=== PATIENT | female | born 1975 | race Caucasian/White ===

== ENCOUNTER 2020-11-16 13:02 | Emergency (ER) | payer OTHER, SELFPAY ==
[2020-11-16 13:12] VITALS: BP 151/89; PULSE 93; RESP 16; TEMP 37.3; O2SAT 98
--- NOTE | 2020-11-16 13:13 | ED.URI ---
HPI - URI/Sore Throat General Chief Complaint: Upper Respiratory Infection Stated Complaint: sinus infection Time Seen by Provider: 11/16/20 13:41 Source: patient and RN notes reviewed Mode of arrival: ambulatory Limitations: no limitations History of Present Illness HPI Narrative: 45-year-old female presents with concern for nasal congestion,, headache, fever, rhinorrhea, cough. Reports symptoms started 2 days ago. Reports she has had Covid positive coworkers. She denies loss of taste and smell, shortness of breath, body aches, chills, sweats. Reports she has been taking sinus medication. MD elicited complaint: nasal congestion Related Data Allergies Allergy/AdvReac Type Severity Reaction Status Date / Time No Known Allergies Allergy Verified 10/22/18 19:10 Review of Systems Review of Systems: CONSTITUTIONAL: Denies malaise, chills, sweats. Reports fever. EYES: Denies visual changes, redness, or discharge. ENT: Reports rhinorrhea, congestion, sinus pain. Denies otalgia and sore throat. CARDIOVASCULAR: Denies chest pain, palpitations, or edema. RESPIRATORY: Reports cough. Denies dyspnea. GASTROINTESTINAL: Denies abdominal pain, nausea, vomiting, diarrhea SKIN: Denies rash or itching. MUSCULOSKELETAL: Denies myalgia. NEUROLOGIC: Denies headache. All systems reviewed & are unremarkable except as noted in HPI and below PMFSH Comments At time of signature, agree with nursing past medical, surgical, social and family history. There is no relevant family history pertinent to the presenting complaint Exam Narrative: GENERAL: Well-appearing, well-nourished, and in no acute distress. HEAD: Normocephalic EYES: PERRLA, conjunctivae clear ENT: Nares clear, turbinates pink, clear discharge. Mucous membranes moist. TM pearly ojeda with sharp light reflex bilaterally; no tragal tenderness. Oropharynx not erythematous without lesions. Tonsils not enlarged and without exudate, no drooling, no hoarseness, no trismus, uvula midline. NECK: Supple. No lymphadenopathy CHEST: Clear to auscultation, breath sounds equal. No wheezing, rhonchi, rales, or stridor. No respiratory distress, speaks in full sentences. HEART: Regular rate and rhythm. No murmur heard. SKIN: Warm, dry, no rash. NEURO: Alert and oriented x3. PSYCH: Normal mood and affect Course Course Emergency Course: Patient is aware of diagnosis, understands and agrees to treatment plan. Anticipatory guidance given. Patient agrees to follow-up as directed and is aware of reasons to seek care at the emergency department. Portions of this record may have been created with voice recognition software Vital Signs Vital signs: Reviewed. MDM - URI/Sore Throat MDM Narrative Medical decision making narrative: Differential diagnosis considered: [place] virus, strep pharyngitis, allergic rhinitis, upper respiratory tract infection, sinusitis, rhinosinusitis, nasopharyngitis. viral pharyngitis, otitis media, otitis externa, pneumonia, bronchitis, viral cough syndrome, viral syndrome, and influenza. Exam findings show no acute concerns or changes; patient is non-toxic appearing and is in no distress. Patient is appropriate for outpatient treatment and follow-up. Lab Data Attestation: I reviewed the patient's lab results. Critical Care Time Critical Care Time Critical Care Time: No Discharge Plan Discharge Clinical Impression: COVID-19 Patient Disposition: Home, Self-Care Condition: Stable Instructions: How to Recover from COVID-19 at Home (ED) Additional Instructions: Your rapid COVID test was positive today. The following recommendations have been made by the CDC and local Health Departments, regarding COVID-19: -Those individuals with mild cases of COVID-19 can generally be discontinued from isolation, 10 days AFTER the onset of symptoms AND the resolution of fever for 24hrs (without the use of fever-reducing medications) -Those individuals who were asymptomatic, and tested p
[2020-11-16 13:26] VITALS: BP 151/89; PULSE 93; RESP 16; TEMP 37.3; O2SAT 98
== END 2020-11-16 13:42 | disposition home or self-care (01) ==
PROVIDERS: Emergency Provider Nurse Practitioner; PCP Family Medicine
DX: U07.1 COVID-19 (principal)
CPT/HCPCS: 87426; 99213; C9803; G0463

== ENCOUNTER 2020-12-06 12:36 | Outpatient (CLI) | payer OTHER, SELFPAY ==
--- NOTE | ~2020-12-06 | MMUS_ITS ---
EXAMINATION: MM diagnostic mari BI w anmol, US breast BI complete HISTORY: Palpable breast masses TECHNIQUE: Additional 3-D tomosynthesis images of the breasts were performed and synthetic 2-D images were generated. CAD analysis was submitted and interpreted. High resolution complete bilateral breas t ultrasound was performed. COMPARISON: None BREAST PARENCHYMAL COMPOSITION: The breasts are extremely dense, which lowers the sensitivity of mamm ography FINDINGS: MAMMOGRAPHIC FINDINGS: There are multiple bilateral breast masses scattered throughout both breasts predominantly involving the upper outer quadrants. These masses are obscured by dense fibroglandular tissue. There are no darius picious areas of architectural distortion or abnormal cluster of calcifications. ULTRASOUND: Complete bilateral breast ultrasound: There are innumerable bilateral breast cysts corresponding to t he mammographic findings. The largest cyst in the right breast is located at 12:00, 1 cm from the nip ple measuring 2.6 cm. Largest cyst in the left breast is located at 12:00, 6 cm from the nipple measu ring 2.4 cm. IMPRESSION: 1. No evidence for malignancy in either breast. Multiple bilateral breast cysts. 2. Routine yearly screening mammogram and regular clinical breast examination are recommended. BI-RADS Category 2: Benign finding(s). Reviewed, dictated and finalized at location A. IMPRESSION: 1. No evidence for malignancy in either breast. Multiple bilateral breast cysts . 2. Routine yearly screening mammogram and regular clinical breast examination a re recommended. BI-RADS Category 2: Benign finding(s).
== END 2020-12-06 12:37 | disposition home or self-care (01) ==
PROVIDERS: PCP Family Medicine; Visit Provider Advanced Practice Midwife
DX: N60.01 Solitary cyst of right breast (principal)
CPT/HCPCS: 76641; 77062; 77066; G0279

== ENCOUNTER 2021-07-02 11:09 | Emergency (ER) | payer OTHER, SELFPAY ==
--- NOTE | ~2021-07-02 | CT_ITS ---
EXAMINATION: CT brain wo con DATE: 07/02/2021 13:06 INDICATION: Frontal headache TECHNIQUE: Computed tomography (CT) of the head was performed without intravenous contrast. Sagittal and coronal reconstructions were performed. The mA was adjusted according to patient size. Iterative reconstruction technique was employed. The dose-length product was 605.33 mGy-cm. COMPARISON: Brain MR dated 02/25/2017 FINDINGS: There are 3 foci of increased attenuation along the anterior margin of the anterior horn of the right lateral ventricle and single smaller more subtle focus of increased attenuation at the contralateral anterior horn of the left lateral ventricle. Unclear whether this increased attenuation is intra or extra ventricular. No evident correlate on the prior MRI. Differential would include calcification or hemorrhage. No acute infarction or abnormal extra axial fluid collection. Ventricles are otherwise n ormal and symmetric. No mass/mass effect. The orbits, paranasal sinuses and mastoid air cells are nor mal. IMPRESSION: 1. Small foci of increased attenuation along the anterior horns of the left and right lateral ventric les. Given the relatively nondependent and relatively symmetric distribution would favor dystrophic c alcification related to prior insult infection including or TORCH infections over h emorrhage. Recommend correlation with reported prior CT imaging. Dr. Shoemaker discussed these finding s with Dr. Denis at 1:13 PM. Reviewed, dictated and finalized at location A. IMPRESSION: 1. Small foci of increased attenuation along the anterior horns of the left and right lateral ventricles. Given the relatively nondependent and relatively sym metric distribution would favor dystrophic calcification related to prior insul t infection including or TORCH infections over hemorrhage. Re commend correlation with reported prior CT imaging. Dr. Shoemaker discussed thes e findings with Dr. Denis at 1:13 PM.
[2021-07-02 11:15] VITALS: BP 153/91; PULSE 88; RESP 12; TEMP 36.6; O2SAT 100
[2021-07-02] MEDS: METOCLOPRAMIDE HCL INJ 10 MG/2 ML VIAL IV PUSH (12:18)
[2021-07-02] MEDS: SODIUM CHLORIDE 0.9% IV 1,000 ML 999 ML IV CONT (12:18)
[2021-07-02] MEDS: diphenhydrAMINE HCl INJ 50 MG/ML VIAL 25 MG IV PUSH (12:18)
[2021-07-02 12:41] LABS: Basophils Absolute Auto 0.1 K/mm3 (0.0-0.1); Basophils Percent Auto 0.8 % (0.2-1.2); Eosinophils Absolute Auto 0.1 K/mm3 (0-0.3); Eosinophils Percent Auto 0.8 % (0-4.4); Hemoglobin 9.4 g/dL (12.0-15.0); Immature Granulocyte Absolute 0.02 K/mm3 (0.00-0.031); Immature Granulocyte Percent A 0.3 % (0-0.5); Lymphocytes Absolute Auto 1.75 K/mm3 (0.9-3.2); Lymphocytes Percent Auto 22.3 % (18.3-44.2); Mean Corpuscular HGB Conc 29.4 g/dl (32-36); Mean Corpuscular Hemoglobin 20.2 pg (26-34); Mean Corpuscular Volume 68.8 fl (80-100); Mean Platelet Volume 10.6 fl (7.4-10.4); Monocytes Absolute Auto 0.5 K/mm3 (0.1-0.6); Neutrophils Absolute Auto 5.5 K/mm3 (1.3-6.7); Neutrophils Percent Auto 69.8 % (45.5-73.1); Platelet Count Result 290 k/mm3 (150-375); Red Blood Count 4.65 M/mm3 (4.2-5.4); Red Cell Distribution Width 18.3 % (11.5-14.5); White Blood Count 7.8 K/mm3 (4.5-10.0)
--- NOTE | 2021-07-02 12:48 | ED.HA ---
HPI - Headache General Chief Complaint: Headache Stated Complaint: migraine, high bp Time Seen by Provider: 07/02/21 12:05 Source: patient Mode of arrival: ambulatory Limitations: no limitations History of Present Illness HPI Narrative: Patient is a 45-year-old female complaining of a migraine headache, frontal and maxillary sinus, 7 out of 10, dull, accompanied by nasal congestion started 1 week ago. States that she has history of migraine headaches, takes Imitrex for it. Patient states that this is her typical migraine headache. Patient denies speech or visual disturbance, focal weakness or numbness, unsteady gait, neck pain or stiffness, nausea, vomiting, fever or chills. Related Data Allergies Allergy/AdvReac Type Severity Reaction Status Date / Time No Known Allergies Allergy Verified 10/22/18 19:10 Review of Systems Review of Systems: All systems reviewed & are unremarkable except as noted in HPI and below Constitutional: Constitutional: Denies body ache(s), Denies chills, Denies excessive sweating, Denies fatigue, Denies fever(s), Denies headache(s), Denies lethargy, Denies malaise, Denies weakness and Denies weight loss Eyes: Eyes: Denies blurry vision, Denies change in vision and Denies loss of vision ENT: Denies dizziness, Denies ear discharge, Denies headache(s), Denies lip swelling, Denies epistaxis, Denies nasal congestion, Denies neck pain, Denies throat swelling and Denies tongue swelling Cardiovascular: Cardiovascular: Denies chest pain, Denies chest pain at rest, Denies chest pain with activity, Denies diaphoresis, Denies rapid heart rate, Denies edema, Denies irregular heart rhythm, Denies lightheadedness, Denies palpitations, Denies dyspnea and Denies dyspnea on exertion Respiratory: Respiratory: Denies chest congestion, Denies cough, Denies hemoptysis, Denies dyspnea and Denies dyspnea on exertion Gastrointestinal: Gastrointestinal: Denies abdominal pain, Denies melena, Denies hematochezia, Denies diarrhea, Denies nausea, Denies vomiting and Denies hematemesis Musculoskeletal: Musculoskeletal: Denies abnormal gait, Denies deformity, Denies joint swelling, Denies limited range of motion, Denies neck pain and Denies numbness Neurologic: Denies Abnormal speech present, Denies abnormal gait, Denies confusion, Denies dizziness, Denies focal weakness, Denies loss of vision, Denies numbness, Denies Other visual disturbances, Denies Sensory deficit (Neuro) and Denies weakness Psychiatric: Psychiatric: Denies confusion, Denies depression, Denies auditory hallucinations, Denies homicidal ideation and Denies suicidal ideation Endocrine: Endocrine: Denies cold intolerance, Denies excessive sweating, Denies fatigue, Denies heat intolerance and Denies palpitations Hematologic/Lymphatic: Hematologic/Lymphatic: Denies easy bleeding and Denies easy bruising Allergic/Immunologic: Allergic/Immunologic: Denies lip swelling, Denies throat swelling and Denies tongue swelling PMFSH Comments Past medical history: Migraine headache Family history: Negative for aneurysm or dissection Social history: Non-smoker no EtOH or drug use Exam Const: General: cooperative, healthy appearing, comfortable, no acute distress, well developed, alert and awake; No confusion Orientation/consciousness: oriented to person, oriented to place, oriented to time, patient oriented x3 and No confusion Limitations: no limitations HENMT: Head: normal to inspection, normocephalic and atraumatic Ears: hearing grossly normal bilaterally, TM normal on the right and TM normal on the left General nose exam: Normal external nose present, Normal nares present and No nasal discharge present Face and sinus: normal facial exam Mouth: Yes Normal oral and palatal mucosa present, Yes lip normal, Yes tongue normal and Yes oropharynx normal Throat: posterior oropharynx normal, tonsils normal and uvula midline Eyes: General: appearance normal, both eyes and all related stru
[2021-07-02 12:55] LABS: Anion Gap 8 mmol/L (8-16); Blood Urea Nitrogen 14 mg/dL (7-17); Calcium 8.5 mg/dL (8.4-10.2); Carbon Dioxide 25 mmol/L (22-30); Chloride 102 mmol/L (98-107); Estimated CRCL calculation 114 ml/min; Estimated Glomerular Filt Rate > 60; Glucose 98 mg/dL (65-110); Potassium 3.5 mmol/L (3.4-5.0); Sodium 135 mmol/L (137-145)
[2021-07-02 13:02] LABS: Anisocytosis 1+ (NORMAL); Hypochromasia 1+ (NORMAL); Ovalocytes 1+ (NORMAL); Platelet Estimate Adequate (Adequate)
--- NOTE | 2021-07-02 13:05 | PC.NURSE ---
Pt to CT scan via stretcher
[2021-07-02 13:09] VITALS: BP 148/90; PULSE 77; RESP 17; O2SAT 98
[2021-07-02] MEDS: SUMAtriptan SUCCINATE 6 MG/0.5 ML VIAL SUB-Q (13:10)
[2021-07-02 14:08] VITALS: BP 144/93; PULSE 74; RESP 14; O2SAT 100
== END 2021-07-02 14:12 | disposition home or self-care (01) ==
PROVIDERS: Emergency Provider Emergency Medicine; PCP Family Medicine
DX: G43.909 Migraine, unspecified, not intractable, without status migrainosus (principal); J01.00 Acute maxillary sinusitis, unspecified
CPT/HCPCS: 36415; 70450; 80048; 85025; 96361; 96372; 96374; 96375; 99284; J1200; J2765; J3030; J7030

== ENCOUNTER 2021-12-31 08:10 | Emergency (ER) | payer OTHER, SELFPAY ==
[2021-12-31] VITALS (12 sets, daily range): BP systolic 146–188; BP diastolic 90–101; PULSE 65–81; RESP 12–24; TEMP 36.2; O2SAT 98–100
--- NOTE | ~2021-12-31 | XR_ITS ---
EXAMINATION: XR chest 2V 12/31/2021 09:27 INDICATION: Chest pain. Hypertension. PROCEDURE: 2 view chest COMPARISON: No prior studies for comparison. FINDINGS: The lungs are clear. The cardiomediastinal silhouette is within normal limits. There are no pleural effusions. There is no pneumothorax suspected. IMPRESSION: 1: NO ACUTE CARDIOPULMONARY DISEASE. Reviewed, dictated and finalized at location A.
--- NOTE | ~2021-12-31 | US_ITS ---
EXAMINATION:US venous doppler LE RT INDICATION:Right leg swelling TECHNIQUE: Multiple grayscale, color flow and Doppler images of the right lower extremity deep venous systems were obtained and reviewed. COMPARISON:No prior studies for comparison. FINDINGS: The common femoral, superficial femoral and popliteal veins demonstrate normal respiratory variation, augmentation and compressibility. Color flow is also seen within the posterior tibial, pe roneal, greater saphenous and profunda veins. IMPRESSION: 1: No lower extremity deep venous thrombosis. Reviewed, dictated and finalized at location A.
--- NOTE | 2021-12-31 08:22 | ECG_ITS ---
Measurements Intervals [place] Rate: 71 P: 21 FL: 127 QRS: 38 QRSD: 102 T: 27 QT: 411 QTc: 447 Interpretive Statements SINUS RHYTHM BASELINE ARTIFACT- I, III, AVR, AVL, AVF NORMAL ECG NO PREVIOUS ECG AVAILABLE FOR COMPARISON Electronically Signed On 12-31-2021 13:47:00 CDT by Huy Tejada D.O.
[2021-12-31 08:45] LABS: Basophils Percent Auto 0.5 % (0.2-1.2); Eosinophils Absolute Auto 0.1 K/mm3 (0-0.3); Eosinophils Percent Auto 1.3 % (0-4.4); Hemoglobin 9.2 g/dL (12.0-15.0); Immature Granulocyte Absolute 0.04 K/mm3 (0.00-0.031); Immature Granulocyte Percent A 0.5 % (0-0.5); Lymphocytes Absolute Auto 1.44 K/mm3 (0.9-3.2); Lymphocytes Percent Auto 19.4 % (18.3-44.2); Mean Corpuscular HGB Conc 29.7 g/dl (32-36); Mean Corpuscular Hemoglobin 21.3 pg (26-34); Mean Corpuscular Volume 71.8 fl (80-100); Mean Platelet Volume 11.1 fl (7.4-10.4); Monocytes Absolute Auto 0.6 K/mm3 (0.1-0.6); Monocytes Percent Auto 7.5 % (2.6-8.5); Neutrophils Absolute Auto 5.2 K/mm3 (1.3-6.7); Neutrophils Percent Auto 70.8 % (45.5-73.1); Platelet Count Result 314 k/mm3 (150-375); Red Blood Count 4.32 M/mm3 (4.2-5.4); Red Cell Distribution Width 17.9 % (11.5-14.5); White Blood Count 7.4 K/mm3 (4.5-10.0)
[2021-12-31 08:56] LABS: INR 1.1; Partial Thromboplastin Time 25.6 SECONDS (22.3-36.8); Prothrombin Time 13.3 Seconds (11.1-14.7)
[2021-12-31 09:00] LABS: Hypochromasia 1+ (NORMAL); Platelet Estimate Adequate (Adequate)
[2021-12-31 09:01] LABS: Ovalocytes 1+ (NORMAL); Schistocytes None Seen (NORMAL)
[2021-12-31 09:02] LABS: Alanine Aminotransferase 18 U/L (6-35); Albumin Level 4.4 g/dL (3.5-5.1); Alkaline Phosphatase 84 U/L (38-126); Anion Gap 11 mmol/L (8-16); Aspartate Amino Transferase 26 U/L (14-36); Bilirubin,Total 0.4 mg/dL (0.2-1.3); Blood Urea Nitrogen 12 mg/dL (7-17); Calcium 8.7 mg/dL (8.4-10.2); Carbon Dioxide 23 mmol/L (22-30); Chloride 104 mmol/L (98-107); Estimated CRCL calculation 92 ml/min; Estimated Glomerular Filt Rate > 60; Glucose 101 mg/dL (65-110); Lipase 109 U/L (23-300); Potassium 3.5 mmol/L (3.4-5.0); Sodium 138 mmol/L (137-145)
[2021-12-31 09:13] LABS: Troponin I < 0.012 ng/mL (0.000-0.034)
[2021-12-31] MEDS: MECLIZINE HCL 12.5 MG TABLET PO (10:15)
--- NOTE | 2021-12-31 10:53 | ED.GENADULT ---
HPI - General Adult General Chief complaint: Recheck/Abnormal Lab/Rx Stated complaint: ELEVATED BP Time Seen by Provider: 12/31/21 08:26 History of Present Illness HPI narrative: Patient is a 46-year-old female who presents ER with multiple complaints. First complaint is that she has been having elevated blood pressure readings at home. She is scheduled to see her PCP in 6 weeks but would like to be evaluated further. Occasionally her blood pressure will be in the 170s 180s systolic. This is occurring when she is having some dizziness and some nausea. She has had some sinus pressure but no ringing in the ears or loss of hearing. No formal diagnosis of vertigo in the past. Patient also becomes anxious and has underlying anxiety that affects this. Patient also has complaint of right leg swelling that she feels has been present for 6 years and has never been evaluated by previous PCP. She has never been diagnosed with DVT. No calf pain. No chest pain or dyspnea. Related Data Allergies Allergy/AdvReac Type Severity Reaction Status Date / Time No Known Allergies Allergy Verified 12/31/21 08:40 Review of Systems Review of Systems: All systems reviewed & are unremarkable except as noted in HPI and below Constitutional: Constitutional: Denies chills, Denies fatigue and Denies fever(s) ENT: Reports dizziness, Denies nasal congestion and Denies sore throat Cardiovascular: Cardiovascular: Denies chest pain and Denies radiating jaw, neck or arm pain Respiratory: Respiratory: Denies cough and Denies dyspnea Gastrointestinal: Gastrointestinal: Denies abdominal pain, Reports nausea and Denies vomiting Neurologic: Denies headache(s), Denies focal weakness and Denies numbness Psychiatric: Psychiatric: Reports anxiety and Denies depression PMFSH Past Medical History Medical History (Updated 12/31/21 @ 11:00 by Gonsalo Quintero MD) Anxiety Depression Migraine Surgical History Surgical History (Updated 12/31/21 @ 11:00 by Gonsalo Quintero MD) History of D&C Social History Social History (Updated 12/31/21 @ 11:00 by Gonsalo Quintero MD) Substance use: never Exam Narrative: GENERAL: Well-appearing, well-nourished, and in no acute distress. HEAD: Normocephalic, atraumatic. EYES: PERRL and EOMI. ENT: Mucous membranes moist. TMs without redness or bulging but there are some air-fluid levels behind the TMs bilaterally. CHEST: Clear to auscultation. No respiratory distress. HEART: Regular rate and rhythm. Normal peripheral pulses. ABDOMEN: Soft, nontender, nondistended. EXTREMITIES: Normal range of motion. Trace edema right lower extremity. SKIN: Warm, dry, no rash. NEURO: Alert and oriented x3. PSYCH: Normal mood and affect. Course Course Emergency Course: Patient informed of results. Dizziness improved with meclizine. Given reassurance and recommend follow-up with PCP. Will not start antihypertensives at this time as patient may require follow-up blood work and additional management. Vital Signs Vital signs: Vital Signs Temperature 97.1 F L 12/31/21 08:15 Pulse Rate 75 12/31/21 08:15 Respiratory Rate 16 12/31/21 08:15 Blood Pressure 188/101 H 12/31/21 08:15 Pulse Oximetry 100 12/31/21 08:15 Oxygen Delivery Room Air 12/31/21 08:15 Temperature 97.1 F L 12/31/21 08:15 Pulse Rate 69 12/31/21 10:14 Respiratory Rate 18 12/31/21 10:14 Blood Pressure 146/90 H 12/31/21 10:14 Pulse Oximetry 100 12/31/21 10:14 Oxygen Delivery Room Air 12/31/21 08:15 Medical Decision Making Vital Signs Vital Signs: Vital Signs Temperature 97.1 F L 12/31/21 08:15 Pulse Rate 75 12/31/21 08:15 Respiratory Rate 16 12/31/21 08:15 Blood Pressure 188/101 H 12/31/21 08:15 Pulse Oximetry 100 12/31/21 08:15 Oxygen Delivery Room Air 12/31/21 08:15 Temperature 97.1 F L 12/31/21 08:15 Pulse Rate 69 12/31/21 10:14 Respiratory Rate 18 12/31/21 10:14 Bloo
== END 2021-12-31 11:30 | disposition home or self-care (01) ==
PROVIDERS: Emergency Provider Emergency Medicine; PCP Hospitalist
DX: R42 Dizziness and giddiness (principal); R03.0 Elevated blood-pressure reading, without diagnosis of hypertension; M79.89 Other specified soft tissue disorders
CPT/HCPCS: 36415; 71046; 80053; 83690; 84484; 85025; 85610; 85730; 93005; 93971; 99284; A9270

== ENCOUNTER 2022-03-11 10:43 | Emergency (ER) | payer OTHER, SELFPAY ==
--- NOTE | 2022-03-11 10:50 | ED.HA ---
HPI - Headache General Chief Complaint: Headache Stated Complaint: cheng Time Seen by Provider: 03/11/22 11:34 Source: patient Mode of arrival: ambulatory Limitations: no limitations History of Present Illness HPI Narrative: 46-year-old female presents concern for one-week history of sinus pain, pressure, headache, nasal congestion. Reports she has seen her doctor is being treated for migraines, however she feels the symptoms are related to sinuses. She reports body aches. She denies fever. She denies taking any [id number] medications for her symptoms MD elicited complaint: headache Related Data Home Medications Medication Instructions Recorded Confirmed propranolol 20 mg tablet 20 mg PO DAILY 03/11/22 03/11/22 sumatriptan succinate 100 mg tablet 100 mg PO DAILY 03/11/22 03/11/22 Allergies Allergy/AdvReac Type Severity Reaction Status Date / Time No Known Allergies Allergy Verified 03/11/22 11:04 Review of Systems Review of Systems: CONSTITUTIONAL: Reports malaise EYES: Denies visual changes, redness, or discharge. ENT: Reports rhinorrhea, congestion, sinus pain. Otalgia and sore throat. CARDIOVASCULAR: Denies chest pain, palpitations, or edema. RESPIRATORY: Denies cough. Denies dyspnea. GASTROINTESTINAL: Denies abdominal pain, nausea, vomiting, diarrhea SKIN: Denies rash or itching. MUSCULOSKELETAL: Reports myalgia. NEUROLOGIC: Reports headache. All systems reviewed & are unremarkable except as noted in HPI and below PMFSH Past Medical History Medical History (Updated 03/11/22 @ 11:41 by Brie Yoo NP) Anxiety Depression Migraine Surgical History Surgical History (Updated 12/31/21 @ 11:00 by Gonsalo Quintero MD) History of D&C Social History Social History (Updated 12/31/21 @ 11:00 by Gonsalo Quintero MD) Substance use: never Comments At time of signature, agree with nursing past medical, surgical, social and family history. There is no relevant family history pertinent to the presenting complaint Exam Narrative: GENERAL: Well-appearing, well-nourished, and in no acute distress. HEAD: Normocephalic EYES: PERRLA, conjunctivae clear ENT: Nares clear, turbinates edematous and erythematous, sinus tenderness. Mucous membranes moist. TM pearly ojeda with dull light reflex bilaterally; no tragal tenderness. Oropharynx erythematous without lesions. Tonsils enlarged and without exudate, no drooling, no hoarseness, no trismus, uvula midline. NECK: Supple. No lymphadenopathy CHEST: Clear to auscultation, breath sounds equal. No wheezing, rhonchi, rales, or stridor. No respiratory distress, speaks in full sentences. HEART: Regular rate and rhythm. No murmur heard. SKIN: Warm, dry, no rash. NEURO: Alert and oriented x3. PSYCH: Normal mood and affect Course Course Emergency Course: Patient is aware of diagnosis, understands and agrees to treatment plan. Anticipatory guidance given. Patient agrees to follow-up as directed and is aware of reasons to seek care at the emergency department. Portions of this record may have been created with voice recognition software Level of Care: Express Care Visit Vital Signs Vital signs: Reviewed. MDM - Headache MDM Narrative Medical decision making narrative: Differential diagnosis considered: [place] virus, strep pharyngitis, allergic rhinitis, upper respiratory tract infection, sinusitis, rhinosinusitis, nasopharyngitis. viral pharyngitis, otitis media, otitis externa, pneumonia, bronchitis, viral cough syndrome, viral syndrome, and influenza. Exam findings show no acute concerns or changes; patient is non-toxic appearing and is in no distress. Patient is appropriate for outpatient treatment and follow-up. Critical Care Time Critical Care Time Critical Care Time: No Discharge Plan Discharge Clinical Impression: Sinusitis Patient Disposition: Home, Self-Care Condition: Stable Additional Instructions: Take medications as dire
[2022-03-11 11:01] VITALS: BP 130/74; PULSE 66; RESP 16; TEMP 36.4; O2SAT 99
== END 2022-03-11 11:44 | disposition home or self-care (01) ==
PROVIDERS: Emergency Provider Nurse Practitioner
DX: J32.9 Chronic sinusitis, unspecified (principal)
CPT/HCPCS: 99213; G0463

== ENCOUNTER 2022-04-10 10:55 | Outpatient (CLI) | payer OTHER, SELFPAY ==
--- NOTE | ~2022-04-10 | MM_ITS ---
EXAMINATION: MM diagnostic mari BI w anmol HISTORY: History of bilateral breast cysts and palpable lumps TECHNIQUE: Craniocaudal, mediolateral, and mediolateral oblique 3-D tomosynthesis images of the breas ts were performed and synthetic 2-D images were generated. CAD analysis was submitted and interpreted . COMPARISON: 12/06/2020 BREAST PARENCHYMAL COMPOSITION: The breasts are extremely dense, which lowers the sensitivity of mamm ography. FINDINGS: There are waxing and waning bilateral breast masses which have been previously characterize d as cysts. No suspicious mass, calcification, or architectural distortion are identified. There has been no suspicious interval change. IMPRESSION: 1. No mammographic evidence of malignancy. 2. Recommend routine screening mammography in one year. BI-RADS Category 2: Benign finding(s). Reviewed, dictated and finalized at location A. ISSION CLERK
== END 2022-04-10 10:56 | disposition home or self-care (01) ==
PROVIDERS: Visit Provider Nurse Practitioner
DX: N63.0 Unspecified lump in unspecified breast (principal)
CPT/HCPCS: 77062; 77066; G0279

== ENCOUNTER 2022-05-16 10:55 | Outpatient (CLI) | payer OTHER, SELFPAY ==
[2022-05-16 11:07] LABS: Basophils Absolute Auto 0.1 K/mm3 (0.0-0.1); Basophils Percent Auto 0.9 % (0.2-1.2); Eosinophils Absolute Auto 0.2 K/mm3 (0-0.3); Eosinophils Percent Auto 2.2 % (0-4.4); Hematocrit 35.3 % (37.0-47.0); Hemoglobin 10.5 g/dL (12.0-15.0); Immature Granulocyte Absolute 0.03 K/mm3 (0.00-0.031); Immature Granulocyte Percent A 0.4 % (0-0.5); Lymphocytes Absolute Auto 1.49 K/mm3 (0.9-3.2); Lymphocytes Percent Auto 19.7 % (18.3-44.2); Mean Corpuscular HGB Conc 29.7 g/dl (32-36); Mean Corpuscular Hemoglobin 21.3 pg (26-34); Mean Corpuscular Volume 71.6 fl (80-100); Mean Platelet Volume 10.2 fl (7.4-10.4); Monocytes Absolute Auto 0.7 K/mm3 (0.1-0.6); Monocytes Percent Auto 8.9 % (2.6-8.5); Neutrophils Absolute Auto 5.1 K/mm3 (1.3-6.7); Neutrophils Percent Auto 67.9 % (45.5-73.1); Platelet Count Result 299 k/mm3 (150-375); Red Blood Count 4.93 M/mm3 (4.2-5.4); Red Cell Distribution Width 21.3 % (11.5-14.5); White Blood Count 7.6 K/mm3 (4.5-10.0)
[2022-05-16 11:18] LABS: Hypochromasia 1+ (NORMAL); Ovalocytes 1+ (NORMAL); Platelet Estimate Adequate (Adequate); Poikilocytosis 1+ (NORMAL); Schistocytes None Seen (NORMAL)
[2022-05-16 13:46] LABS: Iron 22 ug/dL (37-170)
[2022-05-16 13:47] LABS: Alanine Aminotransferase 34 U/L (6-35); Albumin Level 4.1 g/dL (3.5-5.1); Alkaline Phosphatase 98 U/L (38-126); Anion Gap 7 mmol/L (8-16); Aspartate Amino Transferase 23 U/L (14-36); Bilirubin,Total 0.4 mg/dL (0.2-1.3); Blood Urea Nitrogen 8 mg/dL (7-17); Calcium 8.6 mg/dL (8.4-10.2); Carbon Dioxide 28 mmol/L (22-30); Chloride 105 mmol/L (98-107); Estimated Glomerular Filt Rate > 60; Glucose 90 mg/dL (65-110); Potassium 4.5 mmol/L (3.4-5.0); Sodium 140 mmol/L (137-145)
[2022-05-16 13:55] LABS: Percent Iron Saturation 4 % (20-50)
[2022-05-16 14:21] LABS: Ferritin 4.12 ng/mL (6.24-137)
== END 2022-05-16 10:56 | disposition home or self-care (01) ==
LOC: ANHLAB 10:57
PROVIDERS: Visit Provider Internal Medicine Hematology & Oncology
DX: D64.9 Anemia, unspecified (principal)
CPT/HCPCS: 36415; 80053; 82607; 82728; 83540; 83550; 85025

== ENCOUNTER 2023-02-03 02:45 | Emergency (ER) | payer OTHER, SELFPAY ==
[2023-02-03 02:52] VITALS: BP 150/89; PULSE 88; RESP 18; TEMP 36.6; O2SAT 100
--- NOTE | 2023-02-03 03:52 | ED.HA ---
HPI - Headache General Chief Complaint: Headache Stated Complaint: Migraine Time Seen by Provider: 02/03/23 03:25 Source: patient Mode of arrival: ambulatory Limitations: no limitations History of Present Illness HPI Narrative: 47-year-old female with history of migraine headaches presenting today for migraine headache. She has a very typical of her headaches as frontal mostly. No vision changes. No neck pain or stiffness. No other complaints. She is here for some pain medication. Related Data Home Medications Medication Instructions Recorded Confirmed propranolol 20 mg tablet 20 mg PO DAILY 03/11/22 03/11/22 sumatriptan succinate 100 mg tablet 100 mg PO DAILY 03/11/22 03/11/22 Allergies Allergy/AdvReac Type Severity Reaction Status Date / Time No Known Allergies Allergy Verified 02/03/23 03:00 Review of Systems Review of Systems: All systems reviewed & are unremarkable except as noted in HPI and below PMFSH Past Medical History Medical History Anxiety Depression Migraine Surgical History Surgical History History of D&C Social History Social History Substance use: never Exam Narrative: Constitutional: Generally well appearing, no acute distress Head: Atraumatic, no deformities. Eyes: Pupils equal, round, and reactive to light. Neck: Supple, no tracheal deviation, no JVD. ENMT: Mucous membranes moist Cardiovascular: S1, S2 auscultated. No murmurs, rubs, or gallops. No S3/S4. Normal Distal pulses. No peripheral edema. Respiratory: Lung sounds equal. No wheezes, rales, or rhonchi. Gastrointestinal: Abdomen was soft, nondistended Musculoskeletal: Normal muscle tone and bulk. No obvious deformities over extremities. Skin: No rashes. Neurological: Strength 5/5 in extremities. Distal sensation intact. Mental Status: Awake, alert and oriented x3. Follows commands Course Vital Signs Vital signs: Vital Signs Temperature 36.6 C 02/03/23 02:52 Pulse Rate 88 02/03/23 02:52 Respiratory Rate 18 02/03/23 02:52 Blood Pressure 150/89 H 02/03/23 02:52 Pulse Oximetry 100 02/03/23 02:52 Oxygen Delivery Room Air 10/29/23 02:52 Temperature 36.6 C 02/03/23 02:52 Pulse Rate 88 02/03/23 02:52 Respiratory Rate 18 02/03/23 02:52 Blood Pressure 150/89 H 02/03/23 02:52 Pulse Oximetry 100 02/03/23 02:52 Oxygen Delivery Room Air 02/03/23 02:52 MDM - Headache MDM Narrative Medical decision making narrative: 47-year-old female presenting with migraine type headache ongoing for the last 2 days. Very typical for her migraine headaches. She is here for some pain medication and go home reportedly. On exam she has normal vital signs, slightly hypertensive but otherwise regular. Completely normal neurological exam with no focal abnormalities. Suspect classic migraine headache for the patient. Will be given a dose of Toradol intramuscular as she is driving herself home and does not want anything stronger than that at this point. Pt feeling improved and would like to go home at this point. Return precautions were given to the patient include any new or worsening symptoms or development of and not limited to any chest pain, shortness of breath, lightheadedness, abdominal pain, fevers, chills. Patient understands and agrees. They are to follow-up with her PCP. All questions were answered. Differential Diagnosis Differential diagnosis: Likely migraine and tension headache Medical Records Attestation: I reviewed the patient's medical records. Discharge Plan Discharge Clinical Impression: Migraine Patient Disposition: Home, Self-Care Condition: Stable Instructions: Antibiotic Form, Migraine Headache (ED) Prescriptions: No Action sumatriptan succinate 100 mg tablet 100 mg PO D
[2023-02-03] MEDS: KETOROLAC 30 MG/ML VIAL (*BKC) IM (03:58)
== END 2023-02-03 04:10 | disposition home or self-care (01) ==
PROVIDERS: Emergency Provider Emergency Medicine; PCP Hospitalist
DX: G43.909 Migraine, unspecified, not intractable, without status migrainosus (principal)
CPT/HCPCS: 96372; 99283; J1885

== ENCOUNTER 2023-07-26 14:36 | Emergency (ER) | payer OTHER, SELFPAY ==
[2023-07-26 14:53] VITALS: BP 163/75; PULSE 84; RESP 16; TEMP 37.3; O2SAT 99
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
== END 2023-07-26 15:39 | disposition home or self-care (01) ==
PROVIDERS: Emergency Provider Nurse Practitioner Family; PCP Hospitalist
DX: T22.211A Burn of second degree of right forearm, initial encounter (principal); X13.1XXA Other contact with steam and other hot vapors, initial encounter; Y99.0 Civilian activity done for income or pay
CPT/HCPCS: 99213; G0463